=== PATIENT | female | born 1975 | race Two or more races ===

== ENCOUNTER 2018-04-13 11:13 | Inpatient (IN) | payer OTHER ==
[~2018-04-13] VITALS: Ht 162.6 cm; Wt 192.0 kg
[2018-05-12] MEDS ORDERED: PRENATABS RX T1 EACH PO (11:25)
== END 2018-05-14 13:22 | DRG 775 ==
LOC: LDR 04-14 11:07 → OB/GYN 05-12 17:30
PROC: 10E0XZZ Delivery of Products of Conception, External Approach (ICD-10-PCS; principal; 2018-05-12)
PROC: 0UQGXZZ Repair Vagina, External Approach (ICD-10-PCS; 2018-05-12)
PROC: 0W8NXZZ Division of Female Perineum, External Approach (ICD-10-PCS; 2018-05-12)
PROC: 3E033VJ Introduction of Other Hormone into Peripheral Vein, Percutaneous Approach (ICD-10-PCS; 2018-05-12)
PROC: 4A1HXCZ Monitoring of Products of Conception, Cardiac Rate, External Approach (ICD-10-PCS; 2018-05-12)
DX: O71.4 Obstetric high vaginal laceration alone (principal); Z3A.39 39 weeks gestation of pregnancy; Z37.0 Single live birth

== ENCOUNTER 2018-05-11 07:59 | Outpatient (CLI) | payer OTHER ==
[2018-05-12] MEDS ORDERED: PRENATABS RX T1 EACH PO (11:25)
== END 2018-05-11 09:13 | disposition home or self-care (01) ==
LOC: NST 07:59
DX: Z34.83 Encounter for supervision of other normal pregnancy, third trimester (principal)

== ENCOUNTER 2023-01-12 05:20 | Day surgery (SDC) | payer OTHER ==
[~2023-01-12] VITALS: Ht 163.8 cm; Wt 79.4 kg
[~2023-01-12 05:20] MED LIST: PRENATABS RX T1 EACH PO; SINGULAIR 10MG10 MG PO; ZYRTEC10 M3 PO
== END 2023-01-12 13:15 | disposition home or self-care (01) ==
LOC: CIR.AMB 05:20
PROVIDERS: ATTEND Obstetrics & Gynecology Maternal & Fetal Medicine
DX: N84.0 Polyp of corpus uteri (principal); Z20.822 Contact with and (suspected) exposure to COVID-19; Z88.8 Allergy status to other drugs, medicaments and biological substances